=== PATIENT | male | born 1995 | race Caucasian/White ===

== ENCOUNTER 2017-04-30 03:27 | Emergency (ER) | payer BC ==
[~2017-04-30] VITALS: Ht 172.7 cm; Wt 81.8 kg
[2017-04-30 04:01] VITALS: BP 136/79
== END 2017-04-30 04:03 | disposition home or self-care (01) ==
LOC: ER 03:28
DX: S90.812A Abrasion, left foot, initial encounter (principal); F17.200 Nicotine dependence, unspecified, uncomplicated; V89.0XXA Person injured in unspecified motor-vehicle accident, nontraffic, initial encounter; Y93.89 Activity, other specified; Y92.410 Unspecified street and highway as the place of occurrence of the external cause; Y99.8 Other external cause status
CPT/HCPCS: 99283